=== PATIENT | male | born 1955 | race Caucasian/White ===

== ENCOUNTER 2019-01-21 17:38 | Emergency (ER) | payer BC, MEDICARE ==
[~2019-01-21] VITALS: Ht 180.3 cm; Wt 86.4 kg
[2019-01-21 17:50] VITALS: BP 151/103
[2019-01-21] MEDS ORDERED: diphenhydrAMINE INJ 50MG/ML VIAL (J1200) IV ONE (18:45)
[2019-01-21] MEDS ORDERED: dexameTHASONE 20 MG/5 ML VIAL (J1100) IV ONE (18:45)
[2019-01-21] MEDS ORDERED: BENA25CA4 PO (19:25)
[2019-01-21] MEDS ORDERED: PRED20TA PO (19:25)
== END 2019-01-21 19:33 | disposition home or self-care (01) ==
LOC: M ED 17:38
DX: T63.441A Toxic effect of venom of bees, accidental (unintentional), initial encounter (principal); R22.0 Localized swelling, mass and lump, head; X58.XXXA Exposure to other specified factors, initial encounter; Y92.410 Unspecified street and highway as the place of occurrence of the external cause; K21.9 Gastro-esophageal reflux disease without esophagitis; M17.0 Bilateral primary osteoarthritis of knee; F17.200 Nicotine dependence, unspecified, uncomplicated; Z91.030 Bee allergy status
CPT/HCPCS: 93041; 94760; 96374; 96375; 99284; J1100; J1200

== ENCOUNTER → 2019-02-05 | Outpatient (REF) | payer MEDICARE ==
[~2019-02-05] MED LIST: BENA25CA4 PO; PRED20TA PO
== END ==
LOC: M SFHCCLAY 11:50
PROVIDERS: ATTEND Family Medicine
DX: K21.9 Gastro-esophageal reflux disease without esophagitis (principal)
CPT/HCPCS: 87338; G0463

== ENCOUNTER 2020-02-24 03:15 | Emergency (ER) | payer MEDICARE ==
[~2020-02-24] VITALS: Ht 180.3 cm; Wt 87.3 kg
[2020-02-24 04:07] LABS: BASO % 0.3 % (0.0-1.0); EOS # 0.2 10^3/uL (0.0-0.5); EOS % 1.3 % (0.0-3.0); HEMATOCRIT 50.5 % (42.0-52.0); HEMOGLOBIN 16.8 g/dl (13.5-17.5); LYMPH # 2.4 10^3/uL (1.5-5.0); LYMPH % 18.5 % (24.0-44.0); MEAN CORPUSCULAR HEMOGLOBIN 30.9 pg (27.0-33.0); MEAN CORPUSCULAR HGB CONC 33.3 g/dl (32.0-36.5); MEAN CORPUSCULAR VOLUME 92.8 fl (80.0-96.0); MONO # 0.8 10^3/uL (0.0-0.8); MONO % 5.9 % (0.0-5.0); NEUTROPHILS # 9.5 10^3/uL (1.5-8.5); NEUTROPHILS % 73.7 % (36.0-66.0); PLATELET COUNT, AUTOMATED 194 10^3/uL (150-450); RED BLOOD COUNT 5.44 10^6/uL (4.30-6.10); WHITE BLOOD COUNT 12.9 10^3/uL (4.0-10.0)
[2020-02-24] MEDS ORDERED: GI COCKTAIL 50ML BTL(HYOSCYAMINE/MAALOX/LIDOCAINE VISCOUS)(1:3:1) PO ONE (04:15)
[2020-02-24] MEDS ORDERED: ISOVUE-370 76% 100ML VIAL As Ordered ONE (04:18)
[2020-02-24 04:29] LABS: ALBUMIN 3.4 GM/DL (3.2-5.2); BILIRUBIN,DIRECT 0.2 MG/DL (0.0-0.2); BILIRUBIN,TOTAL 0.7 MG/DL (0.2-1.0); TOTAL PROTEIN 6.8 GM/DL (6.4-8.2)
[2020-02-24 05:00] VITALS: BP 133/88
--- NOTE | 2020-02-24 05:29 | REPVR ---
PROCEDURE INFORMATION: Exam: CT Abdomen And Pelvis With Contrast Exam date and time: 02/24/2020 4:27 AM Age: 64 years old Clinical indication: Abdominal pain; Generalized TECHNIQUE: Imaging protocol: Computed tomography of the abdomen and pelvis with intravenous contrast. Radiation optimization: All CT scans at this facility use at least one of these dose optimization techniques: automated exposure control; mA and/or kV adjustment per patient size (includes targeted exams where dose is matched to clinical indication); or iterative reconstruction. Contrast material: ISOVUE 370; Contrast volume: 100 ml; Contrast route: INTRAVENOUS (IV); COMPARISON: No relevant prior studies available. FINDINGS: Lungs: Bilateral dependent atelectasis. Liver: Hepatomegaly and steatosis. Gallbladder and bile ducts: Cholelithiasis. Mild gallbladder wall thickening and pericholecystic fat stranding. Correlate for evidence of acute cholecystitis. Pancreas: Normal. No ductal dilation. Spleen: Normal. No splenomegaly. Adrenals: Normal. No mass. Kidneys and ureters: Normal. No hydronephrosis. Stomach and bowel: Diverticulosis of the colon. No evidence of acute diverticulitis. Appendix: No evidence of appendicitis. Intraperitoneal space: Unremarkable. No free air. No significant fluid collection. Vasculature: Unremarkable. No abdominal aortic aneurysm. Lymph nodes: Unremarkable. No enlarged lymph nodes. Urinary bladder: Unremarkable as visualized. Reproductive: Enlarged prostate. Bones/joints: Multilevel degenerative disease and facet hypertrophy of the thoracolumbar spine. 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 Scoliosis. Mild degenerative changes in the bilateral hips. Soft tissues: Unremarkable. IMPRESSION: Cholelithiasis. Mild gallbladder wall thickening and pericholecystic fat stranding. Correlate for evidence of acute cholecystitis. Diverticulosis of the colon. No evidence of acute diverticulitis. No bowel obstruction. Normal appendix. Electronically signed by: Omero Miller On 02/24/2020 05:29:00 AM
[2020-02-24] MEDS ORDERED: PRIL20TA2 PO (05:56)
[2020-02-24] MEDS ORDERED: SUCR1TA PO (05:56)
== END 2020-02-24 06:07 | disposition home or self-care (01) ==
LOC: M ED 03:15
DX: K21.0 Gastro-esophageal reflux disease with esophagitis (principal); K80.20 Calculus of gallbladder without cholecystitis without obstruction; F17.200 Nicotine dependence, unspecified, uncomplicated; K57.30 Diverticulosis of large intestine without perforation or abscess without bleeding; Z79.899 Other long term (current) drug therapy; Z91.030 Bee allergy status
CPT/HCPCS: 74177; 80047; 80076; 81001; 83690; 85025; 99284; Q9967

== ENCOUNTER → 2022-05-01 | Outpatient (REF) | payer MEDICARE ==
[~2022-05-01] MED LIST changes: +PRIL20TA2 PO; +SUCR1TA PO
[2022-05-01 19:47] LABS: ALBUMIN 3.6 G/DL (3.2-5.2); ALKALINE PHOSPHATASE 100 U/L (46-116); ALT/SGPT 22 U/L (7.0-40); AST/SGOT 17 U/L (<34); BILIRUBIN,TOTAL 0.7 MG/DL (0.3-1.2); BLOOD UREA NITROGEN 9 MG/DL (9-23); CALCIUM LEVEL 8.5 MG/DL (8.3-10.6); CARBON DIOXIDE LEVEL 27 MMOL/L (20-31); CHLORIDE LEVEL 105 MMOL/L (98-107); CHOLESTEROL LEVEL 185 MG/DL (<200); CHOLESTEROL RISK RATIO 4.04 (<5); CREATININE FOR GFR 0.89 MG/DL (0.70-1.30); GLOMERULAR FILTRATION RATE > 60.0 (>49); GLUCOSE, FASTING 82 MG/DL (74-106); HDL CHOLESTEROL 45.7 MG/DL (>40); LDL CHOLESTEROL 108.5 MG/DL (<100); NON-HDL-C 139 MG/DL; POTASSIUM SERUM 4.4 MMOL/L (3.5-5.1); SODIUM LEVEL 138 MMOL/L (136-145); TOTAL PROTEIN 6.6 G/DL (5.7-8.2); TRIGLYCERIDES LEVEL 154 MG/DL (<150)
== END ==
LOC: M SFHCCLAY 10:57
PROVIDERS: ATTEND Nurse Practitioner Family
DX: K21.9 Gastro-esophageal reflux disease without esophagitis (principal); F17.210 Nicotine dependence, cigarettes, uncomplicated; M17.9 Osteoarthritis of knee, unspecified

== ENCOUNTER → 2022-06-19 | Outpatient (CLI) | payer MEDICARE | LOC: M SOG 08:02 | PROVIDERS: ATTEND Orthopaedic Surgery Adult Reconstructive Orthopaedic Surgery | DX: M25.562 Pain in left knee (principal); M17.12 Unilateral primary osteoarthritis, left knee ==

== ENCOUNTER 2022-08-03 08:45 | Outpatient (RCR) | payer MEDICARE | END 2022-08-25 | LOC: M PT 08:45 | PROVIDERS: ATTEND Orthopaedic Surgery | DX: M17.12 Unilateral primary osteoarthritis, left knee (principal) ==

== ENCOUNTER → 2022-08-25 | Outpatient (CLI) | payer MEDICARE | LOC: M RAD 11:03 | PROVIDERS: ATTEND Orthopaedic Surgery | DX: M17.12 Unilateral primary osteoarthritis, left knee (principal) ==

== ENCOUNTER → 2024-05-07 | Outpatient (REF) | payer MEDICARE ==
[2024-05-07 18:37] LABS: HEMOGLOBIN A1c 5.6 % (4.0-6.0)
[2024-05-07 18:44] LABS: C REACTIVE PROTEIN QUANTITATIV 0.87 MG/DL (<1.0)
[2024-05-07 18:45] LABS: ALBUMIN 3.6 G/DL (3.2-5.2); ALKALINE PHOSPHATASE 93 U/L (40-129); ALT/SGPT 16 U/L (7.0-40); AST/SGOT 12 U/L (<34); BILIRUBIN,TOTAL 0.5 MG/DL (0.3-1.2); BLOOD UREA NITROGEN 13 MG/DL (9-23); CALCIUM LEVEL 10.9 MG/DL (8.3-10.6); CARBON DIOXIDE LEVEL 31 MMOL/L (20-31); CHLORIDE LEVEL 104 MMOL/L (98-107); CHOLESTEROL LEVEL 225 MG/DL (<200); CHOLESTEROL RISK RATIO 5.11 (<5); CREATININE FOR GFR 0.95 MG/DL (0.70-1.30); GLOMERULAR FILTRATION RATE > 60.0 (>42); GLUCOSE, FASTING 98 MG/DL (74-106); LDL CHOLESTEROL 145.2 MG/DL (<100); POTASSIUM SERUM 4.7 MMOL/L (3.5-5.1); SODIUM LEVEL 141 MMOL/L (136-145); TOTAL PROTEIN 7.4 G/DL (5.7-8.2); TRIGLYCERIDES LEVEL 179 MG/DL (<150)
[2024-05-07 18:47] LABS: BASO # 0.1 10^3/uL (0.0-0.2); BASO % 0.5 % (0.0-1.0); EOS # 0.1 10^3/uL (0.0-0.5); EOS % 1.4 % (0.0-3.0); HEMATOCRIT 55.1 % (42.0-52.0); HEMOGLOBIN 18.4 g/dl (13.5-17.5); LYMPH # 3.1 10^3/uL (1.5-5.0); LYMPH % 34.2 % (24.0-44.0); MEAN CORPUSCULAR HEMOGLOBIN 31.2 pg (27.0-33.0); MEAN CORPUSCULAR HGB CONC 33.4 g/dl (32.0-36.5); MEAN CORPUSCULAR VOLUME 93.5 fl (80.0-96.0); MONO # 0.7 10^3/uL (0.0-0.8); MONO % 7.9 % (2.0-8.0); NEUTROPHILS # 5.1 10^3/uL (1.5-8.5); NEUTROPHILS % 55.7 % (36.0-66.0); PLATELET COUNT, AUTOMATED 184 10^3/uL (150-450); RED BLOOD COUNT 5.89 10^6/uL (4.30-6.10); TESTOSTERONE 754 NG/DL (241-827); WHITE BLOOD COUNT 9.2 10^3/uL (4.0-10.0)
[2024-05-07 18:58] LABS: ERYTHROCYTE SEDIMENTATION RATE 28 mm/hr (0-20)
[2024-05-09 14:07] LABS: ANA SCREEN, IFA NEGATIVE (NEGATIVE)
[2024-05-12 14:37] LABS: LYME TOTAL ANTIBODY CIA 2.55 Index (<=0.90)
[2024-05-12 17:18] LABS: LYME AB IGG BY CIA 3.77 Index (<=0.90); LYME AB IGM BY CIA 2.62 Index (<=0.90)
== END ==
LOC: M SFHCCLAY 11:54
PROVIDERS: ATTEND Nurse Practitioner Family
DX: R06.02 Shortness of breath (principal); J06.9 Acute upper respiratory infection, unspecified; A69.20 Lyme disease, unspecified; K21.9 Gastro-esophageal reflux disease without esophagitis; E78.5 Hyperlipidemia, unspecified; M25.50 Pain in unspecified joint; R53.83 Other fatigue; Z79.899 Other long term (current) drug therapy

== ENCOUNTER → 2025-03-26 | Outpatient (REF) | payer MEDICARE ==
[2025-03-26 19:05] LABS: BASO # 0.1 10^3/uL (0.0-0.2); BASO % 0.7 % (0.0-1.0); EOS # 0.2 10^3/uL (0.0-0.5); EOS % 1.8 % (0.0-3.0); LYMPH # 3.2 10^3/uL (1.5-5.0); LYMPH % 35.2 % (24.0-44.0); MONO # 0.7 10^3/uL (0.0-0.8); MONO % 8.2 % (2.0-8.0); NEUTROPHILS # 4.9 10^3/uL (1.5-8.5); NEUTROPHILS % 53.8 % (36.0-66.0); PLATELET COUNT, AUTOMATED 154 10^3/uL (150-450)
[2025-03-26 19:12] LABS: ALT/SGPT 28 U/L (7.0-40); AST/SGOT 24 U/L (<34); CALCIUM LEVEL 9.5 MG/DL (8.3-10.6); CARBON DIOXIDE LEVEL 26 MMOL/L (20-31); CHLORIDE LEVEL 106 MMOL/L (98-107); CREATININE FOR GFR 0.91 MG/DL (0.70-1.30); GLOMERULAR FILTRATION RATE > 90.0 (>42); POTASSIUM SERUM 4.5 MMOL/L (3.5-5.1); SODIUM LEVEL 142 MMOL/L (136-145)
[2025-03-26 19:29] LABS: ESTIMATED AVERAGE GLUCOSE 120.0 MG/DL (60-110)
[2025-04-01 21:23] LABS: LYME TOTAL ANTIBODY CIA 1.95 Index (<=0.90)
[2025-04-02 00:27] LABS: LYME AB IGG BY CIA 3.47 Index (<=0.90); LYME AB IGM BY CIA 1.59 Index (<=0.90)
== END ==
LOC: M SFHCCLAY 10:56
PROVIDERS: ATTEND Physician Assistant
DX: R53.83 Other fatigue (principal)